=== PATIENT | male | born 1945 | race Caucasian/White ===

== ENCOUNTER 2019-12-27 10:23 | Outpatient (CLI) | payer MEDICARE ==
[~2019-12-27] VITALS: Ht 172.7 cm; Wt 78.2 kg
[2019-12-27 13:12] VITALS: Ht 172.7 cm; Wt 78.2 kg
--- NOTE | 2019-12-27 14:50 | NUR ---
NO SIGNS OR SYMPTOMS OF TRANSFUSION REACTION. LEFT CHEST PORT FLUSHED, DISCHARGE INSTRUCTIONS REVIEWED WITH PATIENT AND SPOUSE. DISCHARGED HOME AMBULATORY WITH SPOUSE
== END 2019-12-27 14:50 | disposition home or self-care (01) ==
LOC: D.OPS 10:23
PROVIDERS: ATTEND Internal Medicine Hematology & Oncology
DX: D64.9 Anemia, unspecified (principal)

== ENCOUNTER → 2020-05-25 07:41 | Outpatient (CLI) | payer MEDICARE ==
[2019-12-27 13:12] VITALS: BMI 26.2
== END | disposition home or self-care (01) ==
LOC: D.CT 07:41
PROVIDERS: ATTEND Internal Medicine Hematology & Oncology
DX: C80.1 Malignant (primary) neoplasm, unspecified (principal); C78.6 Secondary malignant neoplasm of retroperitoneum and peritoneum